=== PATIENT | female | born 2005 | race Caucasian/White ===

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

== ENCOUNTER → 2024-08-18 | Outpatient (CLI) | payer BC, SELFPAY ==
[2024-08-18 17:05] LABS: hCG Titer Quant., Serum 165 mIU/mL (<9 non-preg)
== END | disposition home or self-care (01) ==
LOC: LAB 14:35
PROVIDERS: PCP Student in an Organized Health Care Education/Training Program; Referring Provider Advanced Practice Midwife; Visit Provider Advanced Practice Midwife
DX: O03.9 Complete or unspecified spontaneous abortion without complication (principal)
CPT/HCPCS: 36415; 84702

== ENCOUNTER → 2024-08-22 | Outpatient (CLI) | payer BC, SELFPAY ==
[2024-08-22 13:39] LABS: hCG Titer Quant., Serum 42 mIU/mL (<9 non-preg)
== END | disposition home or self-care (01) ==
LOC: LAB 11:28
PROVIDERS: PCP Student in an Organized Health Care Education/Training Program; Referring Provider Advanced Practice Midwife; Visit Provider Advanced Practice Midwife
DX: N91.2 Amenorrhea, unspecified (principal)
CPT/HCPCS: 36415; 84702

== ENCOUNTER → 2024-08-29 | Outpatient (CLI) | payer BC, SELFPAY ==
[2024-08-29 13:04] LABS: hCG Titer Quant., Serum 7 mIU/mL (<9 non-preg)
== END | disposition home or self-care (01) ==
LOC: LAB 11:51
PROVIDERS: PCP Student in an Organized Health Care Education/Training Program; Referring Provider Advanced Practice Midwife; Visit Provider Advanced Practice Midwife
DX: O03.9 Complete or unspecified spontaneous abortion without complication (principal)
CPT/HCPCS: 36415; 84702

== ENCOUNTER → 2024-11-19 | Outpatient (CLI) | payer BC, SELFPAY ==
--- OUTSIDE RECORDS SUMMARY | 2024-11-19 10:02 | XMS RPT_ITS | CCD ---
Author Organization [facility] Care Team Providers Care Statement Clerk Name Role Phone DR VIRGINIA ROACH DO Primary Care Physician [phone] Dr. Brandon Mckeon Primary Care Provider Dr. Brandon Mckeon Referring Provider [phone] Ivelisse [employer]QUIPMENT TENDER, KATARINA Zelaya Attending Provider Virginia Roach Primary Care Unavailable Anneliese Fairbanks Attending Unavailable Anneliese Fairbanks Referring Unavailable Virginia Roach Primary Care Unavailable Anneliese Fairbanks Attending Unavailable Anneliese Fairbanks Referring Unavailable Anneliese Fairbanks Attending Unavailable Anneliese Fairbanks Referring Unavailable Virginia Roach Primary Care Unavailable Dr. Virginia Roach DO Primary Care Provider [phone] Anneliese Fairbanks CNM Attending Provider Anneliese Fairbanks CNM Referring Provider Medications Current Medications Medication Drug Class(es) Dates Sig (Normalized) Sig (Original) Altavera 0.15 mg-30 mcg oral tablet (1 source) Start: 04-22-2021 take 1 tablet by mouth once daily Altavera 0.15 mg-30 mcg oral tablet Dose = 1 tab(s), Oral, qDay, # 28 tab(s), 0 Refill(s) Start Date: 04/22/21 Status: Ordered amoxicillin 875 mg / clavulanate 125 mg oral tablet (4 sources) Penicillin-class Antibacterial Start: 09-20-2021 take 1 tablet by mouth twice daily Amoxicillin-Pot Clavulanate Active 1 TABLET PO TWICE A DAY September 20, 2021 10:03pm Start: 09-20-2021 Amoxicillin-Po t Clavulanate 875-125 mg tablet Active 1 {tbl} PO TWICE A DAY September 20, 2021 12:00am Levonorgestrel-Ethinyl Estrad (20 sources) Progestin, Estrogen, Progestin-containing Intrauterine Device Start: 06-23-2021 Levonorgestrel-Ethinyl Estrad 0.15-0.03 mg tablet Active 1 {tbl} PO DAILY June 23, 2021 12:55pm Start: 06-23-2021 take 1 tablet by orin th once daily Levonorgestrel-Ethinyl Estrad Active 1 TABLET PO DAILY June 23, 2021 12:55pm Start: 10-28-2020 End: 06-23-2021 Levonorgestrel-Ethinyl Estra d 0.15-0.03 mg tablet Discontinued 1 {tbl} PO DAILY October 28, 2020 8:42am June 23, 2021 12:55pm Start: 10-28-2020 End: 06-23-2021 take 1 tablet by mouth once daily Levonorgestrel-Ethinyl Estrad Discontinued 1 TABLET PO DAILY October 28, 2020 8:42am June 23, 2021 12:55pm Start: 10-22-2020 End: 10-28-2020 Levonorgestrel-Ethinyl Estra d 0.15-0.03 mg tablet Discontinued 1 {tbl} PO DAILY October 22, 2020 1:09pm October 28, 2020 8:42am Start: 10-22-2020 End: 10-28-2020 take 1 tablet by mouth once daily Levonorgestrel-Ethinyl Estrad Discontinued 1 TABLET PO DAILY October 22, 2020 1:09pm October 28, 2020 8:42am Start: 08-21-2019 End: 10-22-2020 take 1 tablet by mouth once daily Levonorgestrel-Ethinyl Estrad Discontinued 1 TABLET PO DAILY August 21, 2019 8:17am October 22, 2020 1:09pm Start: 08-21-2019 End: 10-22-2020 Levonorgestrel-Ethinyl Estra d 0.15-0.03 mg tablet Discontinued 1 {tbl} PO DAILY August 21, 2019 12:00am October 22, 2020 1:09pm Start: 05-15-2019 End: 08-21-2019 take 1 tablet by mouth once daily Levonorgestrel-Ethinyl Estrad (Aviane) 0.1-20 mg-mcg tablet Discontinued 1 TABLET PO daily May 15, 2019 9:51am August 21, 2019 8:17am Start: 05-15-2019 End: 08-21-2019 take 1 tablet by mouth once daily Levonorgestrel-Ethinyl Estrad (Aviane) 0.1-20 mg-mcg tablet Discontinued 1 {tbl} PO daily May 15, 2019 1:00am August 21, 2019 8:17am Problems Problem Classification Problem Date Documented Da te Episodic/Chronic Menstrual disorders (5 sources) Dysmenorrhea; Translations: [Dysmenorrhea, unspecified] Onset: 08-31-2024 08-21-2019 Chronic Open wounds of extremities (8 sources) Cat bite - wound; Translations: [Open bite of left hand, initial encounter] 09-28-2021 Episodic Spontaneous (1 source) Complete or unspecified spontaneous without complication; Translations: [Complete or unspecified spontaneous without complication] Onset: 09-04-2024 Episodic Results Test Name Value Interpretation Reference Range [facility] HCG ( test) QlOrder ed By: Anneliese Fairbanks on 08-29-2024 Human Chorionic Gonadotropin, Quant 7 mIU/mL <9 [facility] Comment on above: Gestational Age0.2-1 Week: 5-50 mIU/mL1- 2 Weeks: 50-500 mIU/mL2-3 Weeks: 100-5000 mIU/mL3-4 Weeks: 500-10,000 mIU/mL4-5 Weeks:1000-50,000 mIU/mL5-6 Weeks: 10,000-100,000 mIU/mL6-8 Weeks: 15,000-200,000 mIU/mL2-3 Months:10,000-100,000 mIU/mL hCG Titer Quant., Serumon HCG QUANT. 7 mIU/mL Normal <9 non-preg [facility] Comment on above: Result Comment: Gestational Age 0.2-1 Week: 5-50 mIU/mL 1-2 Weeks: 50-500 mIU/mL 2-3 Weeks: 100-5000 mIU/mL 3-4 Weeks: 500-10,000 mIU/mL 4-5 Weeks:1000-50,000 mIU/mL 5-6 Weeks: 10,000-100,000 mIU/mL 6-8 Weeks: 15,000-200,000 mIU/mL 2-3 Months:10,000-100,000 mIU/mL Performed By: #### L 700.8000 #### [facility] [address] [place], [place], [id number] HCG ( test) QlOrder ed By: Anneliese Fairbanks on 08-22-2024 Human Chorionic Gonadotropin, Quant 42 mIU/mL High <9 [facility] Comment on above: Gestational Age0.2-1 Week: 5-50 mIU/mL1- 2 Weeks: 50-500 mIU/mL2-3 Weeks: 100-5000 mIU/mL3-4 Weeks: 500-10,000 mIU/mL4-5 Weeks:1000-50,000 mIU/mL5-6 Weeks: 10,000-100,000 mIU/mL6-8 Weeks: 15,000-200,000 mIU/mL2-3 Months:10,000-100,000 mIU/mL hCG Titer Quant., Serumon HCG QUANT. 42 mIU/mL High <9 non-preg [facility] Comment on above: Result Comment: Gestational Age 0.2-1 Week: 5-50 mIU/mL 1-2 Weeks: 50-500 mIU/mL 2-3 Weeks: 100-5000 mIU/mL 3-4 Weeks: 500-10,000 mIU/mL 4-5 Weeks:1000-50,000 mIU/mL 5-6 Weeks: 10,000-100,000 mIU/mL 6-8 Weeks: 15,000-200,000 mIU/mL 2-3 Months:10,000-100,000 mIU/mL Performed By: #### L 700.8000 #### [facility] [address] [place], [place], [id number] HCG ( test) QlOrder ed By: Anneliese Fairbanks on 08-18-2024 Human Chorionic Gonadotropin, Quant 165 mIU/mL High <9 [facility] Comment on above: Gestational Age0.2-1 Week: 5-50 mIU/mL1- 2 Weeks: 50-500 mIU/mL2-3 Weeks: 100-5000 mIU/mL3-4 Weeks: 500-10,000 mIU/mL4-5 Weeks:1000-50,000 mIU/mL5-6 Weeks: 10,000-100,000 mIU/mL6-8 Weeks: 15,000-200,000 mIU/mL2-3 Months:10,000-100,000 mIU/mL hCG Titer Quant., Serumon HCG QUANT. 165 mIU/mL High <9 non-preg [facility] Comment on above: Result Comment: Gestational Age 0.2-1 Week: 5-50 mIU/mL 1-2 Weeks: 50-500 mIU/mL 2-3 Weeks: 100-5000 mIU/mL 3-4 Weeks: 500-10,000 mIU/mL 4-5 Weeks:1000-50,000 mIU/mL 5-6 Weeks: 10,000-100,000 mIU/mL 6-8 Weeks: 15,000-200,000 mIU/mL 2-3 Months:10,000-100,000 mIU/mL Performed By: #### L 700.8000 #### [facility] [place], [address] XR SPINE LUMBAR W/OBLIQUES 4 VIEWSon 04-23-2021 XR SPINE LUMBAR W/OBLIQUES 4 VIEWS ORIGINAL EXAMINATION: AP lateral obliques 5 XRAY VIEWS OF THE LUMBAR SPINE04/22/2021 9:12 am COMPARISON: None HISTORY: ORDERING SYSTEM PROVIDED HISTORY: Reason for Exam: low back pain for about 1 year FINDINGS: 5 lumbar-type vertebral bodies show normal height and alignment with no fracture or compression deformity. No disc space narrowing, spondylosis or significant facet arthropathy. No spondylolysis on the oblique views. Symmetric SI joints. Minimal levocurvature that may be postural. IMPRESSION: Negative lumbar spine. Interpreted by: Zachary Camargo MD Preliminary Report By: Zachary Camargo MD Electronically signed By Zachary Camargo MD Dictated Date: 04/23/2021 3:37:30 PM Prelim Date: 04/23/2021 3:38:25 PM Sign Date: 04/23/2021 3:38:25 PM Ordering Provider: VIRGINIA Lainez [facility]ly [facility] ([place]) Yasir 11-23-2020 CNOV Office Visit (PEDSWS ) BRIT SANDOVAL Demetrio ([id number]) 1 F Date Time Provider Department 11/23/20 9:15 AM SHAKEEL DAVISON During your visit today, we recorded the following information about you: Temperature Pulse Respiration Blood pressure 97.7 degrees 80/minute 20/minute 108/72 Weight Height Last Period 63.9 kg 1.625 m 11/16/20 Shakeel Davison MD 11/23/2020 10:21 AM Signed WELL VISIT PEDIATRIC FEMALE 14-17 YRS OLD SERVICE DATE: 11/23/2020 Brit is a 15 year old female who presents today for well exam SUBJECTIVE CONCERNS: no concerns HISTORY ACTIVE PROBLEM LIST Menorrhagia With Irregular Cycle - 08/21/2016 Pain in Joint, Lower Leg - 10/29/2014 PAST MEDICAL HISTORY Diagnosis Date - NEGATIVE MEDICAL HISTORY PAST SURGICAL HISTORY Procedure Laterality Date - REMOVE TONSILS/ADENOIDS,<12 Y/O - TYMPANOSTOMY LOCAL; UNILATERAL 06/17 ALLERGIES No Known Allergies Medications: LARISSIA 0.1-20 mg-mcg per tablet Take 1 tablet by mouth once daily. CHEWABLE MULTI VITAMIN TAB 1 TABLET DAILY FAMILY HISTORY Problem Relation Age of Onset - No Known Problems Maternal Grandmother - other (type II diabetes) Maternal Grandfather - No Known Problems Paternal Grandmother - No Known Problems Paternal Grandfather - No Known Problems Mother - No Known Problems Father - No Known Problems Sister Social History Social History Narrative Not on file Smoking Exposure: Does your child spend a significant amount of time in the care of anyone who smokes? No School: Grade: 11th; grades A. Physical Activity: more than 1 hour of physical activity per day Screen Time totaling more than 2 hours of screen time per day. Safety: Reviewed seat belts, bike helmets and smoke detectors Diet: -Eats 3 meals per day and 2 snacks per day -Typical beverages include water -Fruits and vegetables are eaten with nearly every meal -# of fast food meals/week: 0-1 -# of days/week that family has dinner together: 7 Elimination: no concerns, normal size and consistency Dental: dental care current Sleep: -no sleep concerns Yes, cell phone turned off before bedtime- Yes -television in bedroom Gynecological history: LMP: 11/16/20 Cycles are regular and last 4-5 days. Dysmenorrhea: none Heavy periods: no Substance use: none Sexual History: Attraction: male Sexually Active: No Body image: satisfactory Screening tools reviewed and discussed with patient/spvvyv-EAI-L score 0 (recommended cut off score is 11), Social Determinants of Health and TB. Please see questionnaires and review flowsheets. REVIEW OF SYSTEMS GENERAL: fever 2 weeks ago EYES: No vision concerns ENT: No hearing concerns RESPIRATORY: Negative for cough, wheezing or respiratory distress CARDIOVASCULAR: Negative for chest pain, syncope, lightheadness or heart racing SKIN: Negative for lesions, rash, and itching ENDOCRINE: No growth concerns OBJECTIVE Physical Exam: BP 108/72 Pulse 80 Temp 36.5 ?C (97.7 ?F) (Temporal) Resp 20 Ht 162.5 cm (5' 3.98) Wt 63.9 kg (140 lb 12.8 oz) LMP 11/16/2020 BMI 24.19 kg/m? Blood pressure percentiles are 40 % systolic and 75 % diastolic based on the 2017 AAP Clinical Practice Guideline. This reading is in the normal blood pressure range. 80 %ile (Z= 0.83) based on CDC (Girls, 2-20 Years) BMI-for-age based on BMI available as of 11/23/2020. Last BMI: Wt: 62.4 kg (137 lb 8 oz) (77 %, Z= 0.75)* BMI: 23.60 kg/(m2) Last 4 Encounter Wt Readings: Date: Wt: 11/19/2019 62.4 kg (137 lb 8 oz) (77 %, Z= 0.75)* 10/22/2018 61.7 kg (136 lb) (80 %, Z= 0.83)* 07/26/2018 59.4 kg (131 lb) (76 %, Z= 0.70)* 11/02/2017 58.5 kg (129 lb) (78 %, Z= 0.78)* Last 4 Encounter Ht Readings: Date: Ht: 11/19/2019 162.6 cm (5' 4) (49 %, Z= -0.01)* 10/22/2018 160 cm (5' 3) (38 %, Z= -0.30)* 08/20/2017 158.5 cm (5' 2.4) (39 %, Z= -0.28)* 08/21/2016 155 cm (5' 1.02) (39 %, Z= -0.29)* General: Well developed, No acute distress Head: normocephalic Eyes: conjunctivae/corneas clear Ears: normal external ear and canal, tympanic membranes with normal landmarks Nose: no erythema or rhinorrhea Oropharynx: moist mucous membranes, no erythema or exudate Neck: Supple, no adenopathy; thyroid symmetric, normal size, no bruits Spine: Back symmetric, no curvature Resp: lungs clear to auscultation Heart: RRR , Normal S1 and S2. , No murmurs Abdomen: Soft, nontender, nondistended, no palpable organomegaly or masses, normal bowel sounds Extremities: No clubbing, cyanosis, or edema., No deformities or skin discoloration. Good capillary refill. Full range of motion. Neuro: No focal deficits or abnormal findings present Skin: moderate resolving bruise at left medial lower leg ASSESSMENT AND PLAN Well 15yo Easy bruising - Brit reports this has been happening for a few months. She wi (more content not included)... Normal [facility] Vital Signs Date Time Vital Sign Value Performing Clinician Chey kinney 08-18-2024 14:34-0400 Body height 162.[address] Virginia Roach DO Work Phone: [facility] 09-20-2021 21:26-0400 Body temperature 98 [degF] Dr. Brandon Mckeon Work Phone: [facility] Work Phone: 09-20-2021 21:26-0400 Diastolic blood pressure 54 mm[Hg] Dr. Brandon Mckeon Work Phone: [facility] Work Phone: 09-20-2021 21:26-0400 Heart rate 88 /min Dr. Brandon Mckeon Work Phone: [facility] Work Phone: 09-20-2021 21:26-0400 Respiratory rate 16 /min Dr. Brandon Mckeon Work Phone: [facility] Work Phone: 09-20-2021 21:26-0400 SaO2% (BldA) [Mass fraction] 100 % Dr. Brandon Mckeon Work Phone: [facility] Work Phone: 09-20-2021 21:26-0400 Systolic blood pressure 124 mm[Hg] Dr. Brandon Mckeon Work Phone: [facility] Work Phone: 09-20-2021 20:14-0400 Body height 162.[address] Brandon Mckeon Work Phone: [facility] Work Phone: 09-20-2021 20:14-0400 Body mass index (BMI) [Ratio] 23.8 kg/m2 Dr. Brandon Mckeon Work Phone: [facility] Work Phone: 09-20-2021 20:14-0400 Body weight 62.[address] Brandon Mckeon Work Phone: [facility] Work Phone: 06-23-2021 10:46-0500 Body mass index (BMI) [Ratio] 23.7 kg/m2 Dr. Brandon Mckeon Work Phone: [facility] Work Phone: 06-23-2021 10:46-0500 Body weight 62.[address] Brandon Mckeon Work Phone: [facility] Work Phone: 01-13-2022 10:46-0500 Diastolic blood pressure 68 mm[Hg] Dr. Brandon Mckeon Work Phone: [facility] Work Phone: 06-23-2021 10:46-0500 Systolic blood pressure 120 mm[Hg] Dr. Brandon Mckeon Work Phone: [facility] Work Phone: Encounters Encounter Date Encounter Type Care Provider Facility Start: 08-29-2024 End: 08-29-[address] Virginia Roach DO Work Phone: [facility] Work Phone: Start: 08-29-2024 End: 08-29-2024 Patient encounter procedure Anneliese Fairbanks CNM -Laboratory Work Phone: Start: 08-29-2024 End: 08-29-2024 ambulatory Anneliese Fairbanks Facility:[facility] Start: 08-22-2024 End: 08-22-[address] Virginia Roach DO Work Phone: [facility] Work Phone: Start: 08-22-2024 End: 08-22-2024 Patient encounter procedure Anneliese Fairbanks CNM -Laboratory Work Phone: Start: 08-22-2024 End: 08-22-2024 [facility] Start: 08-18-2024 End: 08-18-[address] Virginia Roach DO Work Phone: [facility] Work Phone: Start: 08-18-2024 End: 08-18-2024 Patient encounter procedure Anneliese Fairbanks CNM -Laboratory Work Phone: Start: 08-18-2024 End: 08-18-2024 [facility] Start: 09-20-2021 End: 09-20-2021 Emergency department patient visit Dr. Brandon Mckeon Work Phone: [facility]-Emergency Department Start: 06-23-2021 End: 06-23-[address] Brandon Mckeon Work Phone: [facility] [place] Start: 04-22-2021 End: 04-22-[address] VIRGINIA ROACH DO [facility] Procedures Date Procedure Procedure Detail Performing Clinician Start: 09-20-2021 Plain x-ray of hand Dr. Brandon Mckeon Work Phone: Start: 06-11-2006 Education about postoperative care after adenotonsillectomy DR VIRGINIA ROACH DO Plan of Treatment Date Care Activity Detail Author Patient Education ED Cat Bite [facility] Work Phone: Patient referral [facility] Work Phone: Payers Date Payer Category Payer Self-pay [id number] 2024 Unknown [id number] Unknown SELF PAY INSURANCE [id number] Unknown [id number] Unknown [id number] Unknown [id number] Social History Date Type Detail Facility Start: 04-22-2021 End: 08-18-2024 Never smoked tobacco (finding) [facility] Start: 09-20-2021 [facility] Work Phone: Start: 2005 Sex Assigned At Female [facility] Start: 08-27-2024 End: 09-04-2024 Sex Female (finding) [facility] Progress note 11-23-2020 Note Date & Type Note Facility 11-23-2020 Note HNO ID: [id number] Author: Shakeel Davison MD Service: ? Author Type: Physician Type: Progress Notes Filed: 11/23/2020 10:21 AM Note Text: WELL VISIT PEDIATRIC FEMALE 14-17 YRS OLD SERVICE DATE: 11/23/2020 Brit is a 15 year old female who presents today for well exam SUBJECTIVE CONCERNS: no concerns HISTORY ACTIVE PROBLEM LIST Menorrhagia With Irregular Cycle - 08/21/2016 Pain in Joint, Lower Leg - 10/29/2014 PAST MEDICAL HISTORY Diagnosis Date - NEGATIVE MEDICAL HISTORY PAST SURGICAL HISTORY Procedure Laterality Date - REMOVE TONSILS/ADENOIDS,<12 Y/O - TYMPANOSTOMY LOCAL; UNILATERAL 06/17 ALLERGIES No Known Allergies Medications: LARISSIA 0.1-20 mg-mcg per tablet Take 1 tablet by mouth once daily. CHEWABLE MULTI VITAMIN TAB 1 TABLET DAILY FAMILY HISTORY Problem Relation Age of Onset - No Known Problems Maternal Grandmother - other (type II diabetes) Maternal Grandfather - No Known Problems Paternal Grandmother - No Known Problems Paternal Grandfather - No Known Problems Mother - No Known Problems Father - No Known Problems Sister Social History Social History Narrative Not on file Smoking Exposure: Does your child spend a significant amount of time in the care of anyone who smokes? No School: Grade: 11th; grades A. Physical Activity: more than 1 hour of physical activity per day Screen Time totaling more than 2 hours of screen time per day. Safety: Reviewed seat belts, bike helmets and smoke detectors Diet: -Eats 3 meals per day and 2 snacks per day -Typical beverages include water -Fruits and vegetables are eaten with nearly every meal -# of fast food meals/week: 0-1 -# of days/week that family has dinner together: 7 Elimination: no concerns, normal size and consistency Dental: dental care current Sleep: -no sleep concerns Yes, cell phone turned off before bedtime- Yes -television in bedroom Gynecological history: LMP: 11/16/20 Cycles are regular and last 4-5 days. Dysmenorrhea: none Heavy periods: no Substance use: none Sexual History: Attraction: male Sexually Active: No Body image: satisfactory Screening tools reviewed and discussed with patient/zwznwj-YIA-Z score 0 (recommended cut off score is 11), Social Determinants of Health and TB. Please see questionnaires and review flowsheets. REVIEW OF SYSTEMS GENERAL: fever 2 weeks ago EYES: No vision concerns ENT: No hearing concerns RESPIRATORY: Negative for cough, wheezing or respiratory distress CARDIOVASCULAR: Negative for chest pain, syncope, lightheadness or heart racing SKIN: Negative for lesions, rash, and itching ENDOCRINE: No growth concerns OBJECTIVE Physical Exam: BP 108/72 Pulse 80 Temp 36.5 ?C (97.7 ?F) (Temporal) Resp 20 Ht 162.5 cm (5' 3.98) Wt 63.9 kg (140 lb 12.8 oz) LMP 11/16/2020 BMI 24.19 kg/m? Blood pressure percentiles are 40 % systolic and 75 % diastolic based on the 2017 AAP Clinical Practice Guideline. This reading is in the normal blood pressure range. 80 %ile (Z= 0.83) based on CDC (Girls, 2-20 Years) BMI-for-age based on BMI available as of 11/23/2020. Last BMI: Wt: 62.4 kg (137 lb 8 oz) (77 %, Z= 0.75)* BMI: 23.60 kg/(m2) Last 4 Encounter Wt Readings: Date: Wt: 11/19/2019 62.4 kg (137 lb 8 oz) (77 %, Z= 0.75)* 10/22/2018 61.7 kg (136 lb) (80 %, Z= 0.83)* 07/26/2018 59.4 kg (131 lb) (76 %, Z= 0.70)* 11/02/2017 58.5 kg (129 lb) (78 %, Z= 0.78)* Last 4 Encounter Ht Readings: Date: Ht: 11/19/2019 162.6 cm (5' 4) (49 %, Z= -0.01)* 10/22/2018 160 cm (5' 3) (38 %, Z= -0.30)* 08/20/2017 158.5 cm (5' 2.4) (39 %, Z= -0.28)* 08/21/2016 155 cm (5' 1.02) (39 %, Z= -0.29)* General: Well developed, No acute distress Head: normocephalic Eyes: conjunctivae/corneas clear Ears: normal external ear and canal, tympanic membranes with normal landmarks Nose: no erythema or rhinorrhea Oropharynx: moist mucous membranes, no erythema or exudate Neck: Supple, no adenopathy; thyroid symmetric, normal size, no bruits Spine: Back symmetric, no curvature Resp: lungs clear to auscultation Heart: RRR , Normal S1 and S2. , No murmurs Abdomen: Soft, nontender, nondistended, no palpable organomegaly or masses, normal bowel sounds Extremities: No clubbing, cyanosis, or edema., No deformities or skin discoloration. Good capillary refill. Full range of motion. Neuro: No focal deficits or abnormal findings present Skin: moderate resolving bruise at left medial lower leg ASSESSMENT AND PLAN Well 15yo Easy bruising - Brit reports this has been happening for a few months. She will noticed a bruise and not know how it happened. No family h/o easy bleeding. No bleeding with bruising/flossing teeth. Discussed checking CBC, PT and PTT, but unable to check PT and PTT due to shortage of specimen tubes. Will check labs in 2-3 months if Sx persist. Pt to notify our office if Sx worsen in the meantime. (more content not included)... [facility] Evaluation + Plan note Radiology Note Date & Type Note Facility Evaluation + Plan note Future Appointments Appointment Date:05/31/2021 08:00:00 AM Scheduled Provider:VIRGINIA ROACH DO Location:[facility] Appointment Type: OV Future Scheduled TestsXR Spine Lumbar W/Obliques 4 Views 04/22/21 [facility] Evaluation note Note Date & Type Note Facility Evaluation note No assessment information availa [facility] Work Phone: Hospital course Narrative Note Date & Type Note Facility Hospital course Narrative No data available for this section [facility] Hospital Discharge instructions Note Date & Type Note Facility Hospital Discharge instructions No data available for this section [facility] Reason for referral (narrative) Note Date & Type Note Facility Reason for referral (narrative) No reason for referral information available [facility] Work Phone: Summary Purpose Family History No Family History Records FoundNo Family History Records FoundNo Family History Records Found Advance Directives Advance Directive Response Recorded Date/ Time Living Will No September 20, 2021 9:26pm Power of Terminal Gauger Supervisor No September 20 9:26pm Chief Complaint and Reason for Visit Chief Complaint heavy bleeding erin rns while on BC CAT BITE Chief Complaint Admit Date E-ORDER August 18, 2024 2:3 4pm INT LAB ORDER August 22, 2024 11: 28am Additional Source Comments INFORMATION SOURCE (unrecogn ized section and content) DATE CREATED AUTHOR 04/24/2021 [facility] ([place]) DATE CREATED AUTHOR AUTHOR'S ORGANIZ ATION 07/03/2021 [facility] DATE CREATED AUTHOR AUTHOR'S ORGANIZ ATION 09/06/2024 [facility] Goals (unrecognized section and content) Goals may be documented in a n alternate section Care Teams (unrecognized sec tion and content) Team Status: Active Member Role Status Dates Dr. Brandon Mckeon DO Family Provider Active Dr. Virginia Roach DO Primary Care Provider Active Team Status: Inactive Member Role Status Dates Dr. Virginia Roach DO Primary Care Provider Active Start: August 18, 2024 End: August 18, 2024 Anneliese Fairbanks CNM Attending Provider Active S tart: August 18, 2024 End: August 18, 2024 Anneliese Fairbanks CNM Referring Provider Active S tart: August 18, 2024 End: August 18, 2024 Team Status: Active Member Role Status Dates Dr. Virginia Roach DO Primary Care Provider Active Start: August 22, 2024 Anneliese Fairbanks CNM Attending Provider Active S tart: August 22, 2024 Anneliese Fairbanks CNM Referring Provider Active S tart: August 22, 2024 Team Status: Inactive Member Role Status Dates Dr. Virginia Roach DO Primary Care Provider Active Start: August 22, 2024 End: August 22, 2024 Anneliese Fairbanks CNM Attending Provider Active S tart: August 22, 2024 End: August 22, 2024 Anneliese Fairbanks CNM Referring Provider Active S tart: August 22, 2024 End: August 22, 2024 Team Status: Active Member Role Status Dates Dr. Virginia Roach DO Primary Care Provider Active Start: August 29, 2024 Anneliese Fairbanks CNM Attending Provider Active S tart: August 29, 2024 Anneliese Fairbanks CNM Referring Provider Active S tart: August 29, 2024 Team Status: Inactive Member Role Status Dates Dr. Virginia Roach DO Primary Care Provider Active Start: August 29, 2024 End: August 29, 2024 Anneliese Fairbanks CNM Attending Provider Active S tart: August 29, 2024 End: August 29, 2024 Anneliese Fairbanks CNM Referring Provider Active S tart: August 29, 2024 End: August 29, 2024 FOR RECORDS PERTAINING TO PATIENTS WHO ARE OR HAVE BEEN ENROLLED IN A CHEMICAL DEPENDENCY/SUBSTANCEABUSE PROGRAM, SOME INFORMATION MAY BE OMITTED. This clinical summary was aggregated from multiple sources. Caution should be exercised in using it in the provision of clinical care. This summary normalizes information from multiple sources, and as a consequence, information in this document may materially change the coding, format and clinical context of patient data. In addition, data may be omitted in some cases. CLINICAL DECISIONS SHOULD BE BASED ON THE PRIMARY CLINICAL RECORDS. [facility] [employer] provides no warranty or guarantee of the accuracy or completeness of information in this document.
[2024-11-19 11:53] LABS: Hepatitis B Surface Antibody Nonreactive
[2024-11-19 12:01] LABS: ALB/GLOB Ratio 2.3 RATIO (0.9-2.4); AST(SGOT) 16 U/L (<=31); Alanine Aminotransfer ALT/SGPT 13 U/L (<=34); Alkaline Phosphatase 48 U/L (35-104); Anion Gap 12 (5-15); BUN 14 mg/dL (4-19); BUN/Creat Ratio 17.5 RATIO (10-20); Calcium,Total 9.9 mg/dL (7.6-11.0); Chloride 104 mmol/L (98-108); Cholesterol 160 mg/dL (<=190); Creatinine, Serum 0.82 mg/dL (0.70-1.20); EST Glomerular Filtration Rate 105 (>60); Globulin 2.2 g/dL (2.2-4.2); Glucose 87 mg/dL (70-99); High Density Lipoprotein 70 mg/dL; Low Density Lipoprotein Calc. 81 mg/dL; Potassium 4.3 mmol/L (3.3-5.1); Protein, Total 7.3 g/dL (5.9-8.4); Rubella IgG REAC (Nonreactive); Sodium Level 137 mmol/L (133-145); Total Bilirubin 0.78 mg/dL (0.00-1.30); Triglycerides 47 mg/dL; Very Low Density Lipoprotein 9 mg/dL (5-40)
== END | disposition home or self-care (01) ==
LOC: LAB 08:34
PROVIDERS: PCP Nurse Practitioner Family; Referring Provider Nurse Practitioner Family; Visit Provider Nurse Practitioner Family
DX: Z01.84 Encounter for antibody response examination (principal)
CPT/HCPCS: 36415; 80053; 80061; 86480; 86706; 86735; 86762; 86765; 86787

== ENCOUNTER → 2024-12-02 | Outpatient (CLI) | payer BC, SELFPAY ==
[2024-12-04 17:07] LABS: QNTFERON TB Mitogen Value > 10.00 IU/mL (.); QNTFERON TB Nil Value 0.03 IU/mL (.); QNTFERON TB1+ Ag Value 0.05 IU/mL (.); QNTFERON TB2+ Ag Value 0.02 IU/mL (.); QNTIFERON TB Positive Criteria Negative (Negative)
== END | disposition home or self-care (01) ==
PROVIDERS: PCP Nurse Practitioner Family; Referring Provider Nurse Practitioner Family; Visit Provider Nurse Practitioner Family
DX: Z01.84 Encounter for antibody response examination (principal)
CPT/HCPCS: 86480